=== PATIENT | female | born 1995 ===

== ENCOUNTER → 2022-09-11 | Day surgery (SDC) | payer OTHER ==
[~2022-09-11] MED LIST: FENTANYL CITRATE/PF 100MCG/2 ML INJ ONE; LIDOCAINE HCL 2% LOCAL INJ 5 ML SDV VIAL INJ ONE; PANTOPRAZOLE SO40 MG PO; PROPOFOL IV EMULSION 50 ML IV ONE; VSL#3 CAPSULE1 EACH PO; VSL#3 PACKET1 EACH PO
[2022-09-11 17:40] VITALS: BP 100/56
== END | disposition home or self-care (01) ==
LOC: OR 09-09 15:51
PROVIDERS: ATTEND Internal Medicine Gastroenterology
DX: K62.89 Other specified diseases of anus and rectum (principal); K59.00 Constipation, unspecified; K64.8 Other hemorrhoids; K21.00 Gastro-esophageal reflux disease with esophagitis, without bleeding; Z68.27 Body mass index [BMI] 27.0-27.9, adult
CPT/HCPCS: 45380; 81025; J2001; J2704; J3010; 45378